=== PATIENT | female | born 1965 | race Caucasian/White ===

== ENCOUNTER 2024-10-28 05:55 | Observation (INO) | payer OTHER ==
[2024-10-28 06:08] VITALS: BMI 36.4
[2024-10-28 06:32] LABS: INR 1.06 (0.83-1.09); PROTHROMBIN TIME (PATIENT) 12.2 SEC (9.7-13.0)
[2024-10-28 06:54] LABS: EOS % 3.9 % (0-4.5); HEMATOCRIT 21.9 % (32.4-45.2); HEMOGLOBIN 7.1 GM/dL (10.7-15.3); LYMPH % 13.1 % (8-40); MCH 32.6 pg (25.7-33.7); MCHC 32.4 g/dl (32.0-36.0); MEAN CELL VOLUME 100.7 fl (80-96); MEAN PLT VOLUME 8.8 fl (7.5-11.1); MONO % 9.7 % (3.8-10.2); NEUT % 72.3 % (42.8-82.8); PLATELET COUNT 217 10^3/uL (134-434); RBC 2.17 M/mm3 (3.60-5.2); RDW 15.5 % (11.6-15.6); WHITE BLOOD COUNT 6.5 K/mm3 (4.0-10.0)
[2024-10-28 07:27] LABS: ALBUMIN 3.6 g/dl (3.4-5.0); BILIRUBIN,TOTAL 0.3 mg/dL (0.2-1); BLOOD UREA NITROGEN 37.1 mg/dL (7-18); CALCIUM 9.3 mg/dL (8.5-10.1); CREATININE 1.2 mg/dL (0.55-1.3); POTASSIUM 4.2 mmol/L (3.5-5.1); TOT PROT 7.4 g/dl (6.4-8.2)
[2024-10-28] MEDS ORDERED: ALBUTEROL SO4 0.083% IH SOL 2.5 MG/3 ML VIAL.NEB. NEB PRN (11:57)
[2024-10-28] MEDS ORDERED: oxyCODONE HCL 5 MG TABLET PO PRN (11:57)
[2024-10-28] MEDS ORDERED: ONDANSETRON *ODT* 4 MG TABLET SL PRN (11:57)
[2024-10-28] MEDS ORDERED: ACETAMINOPHEN 325 MG TABLET (FP) PO PRN (11:57)
[2024-10-28] MEDS ORDERED: FENTANYL PATCH WASTE TD PRN (11:57)
[2024-10-28] MEDS ORDERED: NALOXONE (NYS OPIOID OVERDOSE PROGRAM) 4 MG/0.1 ML SPRAY NS PRN (12:39)
[2024-10-28 12:44] LABS: N-TERMINAL BNP 1009.6 pg/ml (5-125)
[2024-10-28] MEDS ORDERED: NALOXONE HCL 0.4 MG/ML VIAL IVPUSH PRN (13:32)
[2024-10-28] MEDS ORDERED: DOCUSATE SODIUM 100 MG CAPSULE (FP) PO PRN (13:33)
[2024-10-28] MEDS: PRAMIPEXOLE DIHYDROCHLORIDE 0.125 MG TABLET PO SCH (14:40)
[2024-10-28] MEDS: BACLOFEN 10 MG TABLET (FP) PO SCH (14:45)
[2024-10-28] MEDS: GABAPENTIN 300 MG CAPSULE PO SCH (14:50)
[2024-10-28] MEDS ORDERED: GABAPENTIN 300 MG CAPSULE ONE (14:52)
[2024-10-28] MEDS ORDERED: BACLOFEN 10 MG TABLET (FP) ONE (14:53)
[2024-10-28] MEDS ORDERED: [UNRECOGNIZED DRUG - OTHER] PO SCH (15:30)
[2024-10-28] MEDS: NALOXONE (NYS OPIOID OVERDOSE PROGRAM) 4 MG/0.1 ML SPRAY NS SCH (15:50)
[2024-10-28 16:02] VITALS: RESP 18
[2024-10-28] MEDS: RIVAROXABAN 20 MG TABLET PO SCH (17:49)
[2024-10-28 18:10] LABS: BASO % 0.7 % (0-2.0); EOS % 3.7 % (0-4.5); HEMATOCRIT 21.2 % (32.4-45.2); LYMPH % 13.4 % (8-40); MCH 31.8 pg (25.7-33.7); MCHC 32.2 g/dl (32.0-36.0); MEAN CELL VOLUME 98.7 fl (80-96); NEUT % 73.2 % (42.8-82.8); PLATELET COUNT 201 10^3/uL (134-434); RBC 2.14 M/mm3 (3.60-5.2); RDW 16.2 % (11.6-15.6); WHITE BLOOD COUNT 6.2 K/mm3 (4.0-10.0)
[2024-10-28 18:24] LABS: HEMOGLOBIN 6.8 GM/dL (10.7-15.3)
[2024-10-28] MEDS: FUROSEMIDE 40 MG/4 ML INJECTABLE VIAL IVPUSH ONE ×2 (18:44→19:19)
[2024-10-28] MEDS ORDERED: SALMETEROL XINAFOATE IH SCH (22:00)
[2024-10-29] MEDS: FENOFIBRIC ACID 135 MG CAP PO SCH (10:02)
[2024-10-29] MEDS: FUROSEMIDE 40 MG TABLET (FP) PO SCH (10:03)
[2024-10-29] MEDS: ASCORBIC ACID 500 MG TABLET (FP) PO SCH (10:03)
[2024-10-29] MEDS: FERROUS SO4 325 MG TABLET (FP) PO SCH (10:03)
[2024-10-29] MEDS: CHOLECALCIFEROL (VIT D3) 1,000 UNIT (25 MCG) TABLET PO SCH (10:03)
[2024-10-29] MEDS: ALLOPURINOL 300 MG TABLET (FP) PO SCH (10:03)
[2024-10-29] MEDS: amLODIPine BESYLATE 2.5 MG TABLET (FP) PO SCH (10:03)
[2024-10-29] MEDS: FAMOTIDINE 20 MG TABLET PO SCH (10:03)
[2024-10-29 10:46] LABS: BASO % 0.7 % (0-2.0); EOS % 3.3 % (0-4.5); HEMATOCRIT 23.5 % (32.4-45.2); HEMOGLOBIN 7.6 GM/dL (10.7-15.3); MCH 31.4 pg (25.7-33.7); MCHC 32.4 g/dl (32.0-36.0); MEAN CELL VOLUME 96.9 fl (80-96); MEAN PLT VOLUME 8.7 fl (7.5-11.1); MONO % 10.1 % (3.8-10.2); NEUT % 69.9 % (42.8-82.8); PLATELET COUNT 195 10^3/uL (134-434); RBC 2.42 M/mm3 (3.60-5.2); RDW 17.4 % (11.6-15.6); WHITE BLOOD COUNT 5.8 K/mm3 (4.0-10.0)
[2024-10-29 11:08] LABS: POTASSIUM 4.4 mmol/L (3.5-5.1)
[2024-10-29 11:15] LABS: CALCIUM 9.2 mg/dL (8.5-10.1)
[2024-10-29 11:16] LABS: BLOOD UREA NITROGEN 30.2 mg/dL (7-18)
[2024-10-29 11:18] LABS: BILIRUBIN,TOTAL 0.4 mg/dL (0.2-1)
[2024-10-29] MEDS: fentaNYL 75mcg/hr PATCH.TD72 TD SCH (12:05)
[2024-10-29] MEDS ORDERED: FENTANYL PATCH WASTE TD PRN (12:12)
[2024-10-29] MEDS: fentaNYL 25mcg/hr PATCH.TD72 TD SCH (12:37)
[2024-10-30 09:46] LABS: HEMOGLOBIN 8.2 GM/dL (10.7-15.3); MCH 31.5 pg (25.7-33.7); MCHC 32.8 g/dl (32.0-36.0); MEAN CELL VOLUME 96.2 fl (80-96); MEAN PLT VOLUME 8.9 fl (7.5-11.1); PLATELET COUNT 210 10^3/uL (134-434); RDW 17.1 % (11.6-15.6); WHITE BLOOD COUNT 6.2 K/mm3 (4.0-10.0)
[2024-10-30 09:55] VITALS: BP 135/66; PULSE 76; TEMP 99.3
[2024-10-30 10:11] LABS: POTASSIUM 4.5 mmol/L (3.5-5.1)
[2024-10-30 10:13] LABS: CALCIUM 9.5 mg/dL (8.5-10.1)
[2024-10-30 10:14] LABS: BLOOD UREA NITROGEN 35.8 mg/dL (7-18)
[2024-10-30 10:17] LABS: CREATININE 1.1 mg/dL (0.55-1.3)
== END 2024-10-30 15:40 ==
LOC: JER 05:55 → JERBED 09:12 → J5S 15:40
PROVIDERS: ADMIT Internal Medicine; ATTEND Internal Medicine
PROC: 30233N1 Transfusion of Nonautologous Red Blood Cells into Peripheral Vein, Percutaneous Approach (ICD-10-PCS; principal; 2024-10-28)
PROC: 3E033GC Introduction of Other Therapeutic Substance into Peripheral Vein, Percutaneous Approach (ICD-10-PCS; 2024-10-28)
DX: D64.9 Anemia, unspecified (principal); K21.9 Gastro-esophageal reflux disease without esophagitis; I87.2 Venous insufficiency (chronic) (peripheral); I11.0 Hypertensive heart disease with heart failure; Z85.528 Personal history of other malignant neoplasm of kidney; E03.9 Hypothyroidism, unspecified; Z86.718 Personal history of other venous thrombosis and embolism; Z79.01 Long term (current) use of anticoagulants; E78.5 Hyperlipidemia, unspecified; Z85.42 Personal history of malignant neoplasm of other parts of uterus
CPT/HCPCS: 36415; 36430; 71045-TC-FY; 80048; 80053; 83880; 85025; 85027; 85610; 85730; 86850; 86900; 86901; 86922; 93005; 93010; 96374; 99285-25; G0378; J0475; P9058

== ENCOUNTER 2025-06-07 10:51 | Inpatient (IN) | payer OTHER ==
[2025-06-07 11:48] LABS: ABSOLUTE IMMATURE GRANULOCYTES 0.04 x10^3/uL (0.0-0.031); BASOPHILS # 0.04 x10^3/uL (0.01-0.08); EOSINOPHIL % 6.7 % (0.7-5.8); EOSINOPHILS # 0.41 x10^3/uL (0.04-0.36); MCHC 31.1 g/dl (32.2-35.5); MEAN CELL VOLUME 106.2 fl (79.4-94.8); MEAN PLT VOLUME 10.4 fl (9.4-12.3); MONOCYTE # 0.55 x10^3/uL (0.24-0.86); MONOCYTE % 9.0 % (4.7-12.5); RDW 14.1 % (12.4-16.4)
[2025-06-07 12:25] LABS: GLUCOSE,RANDOM 91.0 mg/dL (74-106); TOT PROT 7.0 g/dl (6.4-8.2)
[2025-06-07 12:26] LABS: CO2 30.0 mmol/L (21-32)
[2025-06-07 12:28] LABS: ALK PHOS 65.0 U/L (40-150)
[2025-06-07 12:30] LABS: SGOT/AST 23.0 U/L (5-34); SGPT/ALT 14.0 U/L (0-55)
[2025-06-07 12:31] LABS: CREATININE 1.25 mg/dL (0.55-1.3)
[2025-06-07] MEDS ORDERED: AZITHROMYCIN IVPB 500 MG/250 ML BAG IVPB ONE (12:46)
[2025-06-07] MEDS ORDERED: CEFTRIAXONE 1 GM/50 ML BAG ONE (12:46)
[2025-06-07] MEDS: CEFTRIAXONE 1 GM in DEXTROSE 5%-WATER - 100 ML IVPB ONE (12:53)
[2025-06-07] MEDS ORDERED: PIPERACILLIN/TAZOB 3.375 GM 3.375 GM/50 ML BAG IVPB ONE (13:12)
[2025-06-07 13:14] LABS: URINE APPEARANCE CLEAR; URINE BILIRUBIN NEGATIVE (NEGATIVE); URINE COLOR YELLOW; URINE GLUCOSE (UA) NEGATIVE (NEGATIVE); URINE KETONE NEGATIVE (NEGATIVE); URINE LEUK ESTERASE NEGATIVE (NEGATIVE); URINE NITRITE NEGATIVE (NEGATIVE); URINE PROTEIN NEGATIVE (NEGATIVE); URINE UROBILINOGEN 0.2 mg/dL (0.2-1.0)
[2025-06-07] MEDS: PIPERACILLIN/TAZOB 3.375 GM 3.375 GM in DEXTROSE 5%-WATER - 50 ML IVPB ONE (13:27)
[2025-06-07] MEDS: AZITHROMYCIN IVPB 500 MG in DEXTROSE 5%-WATER - 250 ML IVPB ONE (14:08)
[2025-06-07 16:28] VITALS: BMI 43.3
[2025-06-07] MEDS: methylPREDNISolone NA SUCC 40 MG/1 ML VIAL IVPUSH SCH (19:52)
[2025-06-07] MEDS: ALBUTEROL SO4 0.083% IH SOL 2.5 MG/3 ML VIAL.NEB. NEB SCH (20:15)
[2025-06-07] MEDS: GABAPENTIN 300 MG CAPSULE PO SCH (21:23)
[2025-06-07] MEDS: PRAMIPEXOLE DIHYDROCHLORIDE 0.125 MG TABLET PO SCH (21:23)
[2025-06-07] MEDS: BACLOFEN 10 MG TABLET (FP) PO SCH (21:23)
[2025-06-07] MEDS ORDERED: SALMETEROL XINAFOATE 50 MCG IH SCH (22:00)
[2025-06-07] MEDS ORDERED: PATIENT'S OWN MEDICATION (NON-FORMULARY) (Bupropion Hcl [Bupropion Hcl Sr] 150 MG Tab.Sr.1 PO SCH (22:00)
[2025-06-08] MEDS ORDERED: PATIENT'S OWN MEDICATION (NON-FORMULARY) (Linagliptin [Tradjenta] 5 MG Tablet) PO SCH (10:00)
[2025-06-08] MEDS ORDERED: [UNRECOGNIZED DRUG - OTHER] PO SCH (10:00)
[2025-06-08] MEDS: CEFTRIAXONE 1 GM in DEXTROSE 5%-WATER - 50 ML IVPB SCH (10:37)
[2025-06-08] MEDS: ZINC OXIDE 20% TOPICAL OINTMENT 30 GM TUBE TP SCH (10:37)
[2025-06-08] MEDS: FERROUS SO4 325 MG TABLET (FP) PO SCH (10:38)
[2025-06-08] MEDS: ALLOPURINOL 300 MG TABLET (FP) PO SCH (10:38)
[2025-06-08] MEDS: FUROSEMIDE 40 MG TABLET (FP) PO SCH (10:38)
[2025-06-08] MEDS: amLODIPine BESYLATE 2.5 MG TABLET (FP) PO SCH (10:39)
[2025-06-08] MEDS: CHOLECALCIFEROL (VIT D3) 1,000 UNIT (25 MCG) TABLET PO SCH (10:39)
[2025-06-08] MEDS: ASCORBIC ACID 500 MG TABLET (FP) PO SCH (10:39)
[2025-06-08] MEDS: FENOFIBRIC ACID 135 MG CAP PO SCH (10:42)
[2025-06-08] MEDS: FAMOTIDINE 20 MG TABLET PO SCH (10:48)
[2025-06-08] MEDS: AZITHROMYCIN IVPB 500 MG/250 ML BAG IVPB ONE (18:05)
[2025-06-08] MEDS: RIVAROXABAN 20 MG TABLET PO SCH (18:05)
[2025-06-09 08:08] LABS: ABSOLUTE IMMATURE GRANULOCYTES 0.08 x10^3/uL (0.0-0.031); BASOPHILS # 0.03 x10^3/uL (0.01-0.08); EOSINOPHIL % 0.1 % (0.7-5.8); EOSINOPHILS # 0.01 x10^3/uL (0.04-0.36); MCHC 30.4 g/dl (32.2-35.5); MEAN CELL VOLUME 105.2 fl (79.4-94.8); MEAN PLT VOLUME 10.9 fl (9.4-12.3); MONOCYTE # 0.22 x10^3/uL (0.24-0.86); MONOCYTE % 2.8 % (4.7-12.5); RDW 13.6 % (12.4-16.4)
[2025-06-09 08:42] LABS: GLUCOSE,RANDOM 120.0 mg/dL (74-106)
[2025-06-09 08:43] LABS: TOT PROT 6.8 g/dl (6.4-8.2)
[2025-06-09 08:44] LABS: CO2 29.0 mmol/L (21-32)
[2025-06-09 08:45] LABS: ALK PHOS 63.0 U/L (40-150)
[2025-06-09 08:48] LABS: CREATININE 1.0 mg/dL (0.55-1.3); SGOT/AST 21.0 U/L (5-34); SGPT/ALT 15.0 U/L (0-55)
[2025-06-10] MEDS: CEFPODOXIME PROXETIL 100 MG TABLET PO SCH (21:56)
[2025-06-11 07:46] VITALS: RESP 18; TEMP 98.1
[2025-06-11] MEDS: predniSONE 20 MG TABLET (UD) PO SCH (09:51)
[2025-06-11 14:05] VITALS: BP 117/85; PULSE 71
== END 2025-06-11 14:00 | DRG 192 ==
LOC: JER 10:51 → JERBED 12:34 → J7W 14:49
PROVIDERS: ADMIT Internal Medicine; ATTEND Internal Medicine
DX: J44.1 Chronic obstructive pulmonary disease with (acute) exacerbation (principal); E03.9 Hypothyroidism, unspecified; I10 Essential (primary) hypertension; I87.2 Venous insufficiency (chronic) (peripheral); I27.20 Pulmonary hypertension, unspecified; D64.9 Anemia, unspecified
CPT/HCPCS: 36415; 71045-TC-FY; 80053; 81003; 85025; 87040; 87086; 87635; 87899; 93005; 93010; 94640; 99285-25; J0475